=== PATIENT | male | born 1990 | race Two or more races ===

== ENCOUNTER 2018-06-06 09:43 | Emergency (ER) | payer SELFPAY ==
[~2018-06-06] VITALS: Ht 182.9 cm; Wt 95.3 kg
[2018-06-06 09:59] VITALS: BP 127/80
--- NOTE | 2018-06-06 10:14 | PHYS DOC ---
Adult General Chief Complaint Chief Complaint: WRIST PAIN HPI HPI Patient is a 27 year old male who presents with cysts to dorsal wrist that is mirian egged ache size has been coming and going for the last couple of months. Patient denies any pain and has full function of his wrist and hand. Review of Systems Review of Systems Constitutional: Denies fever or chills [] Eyes: Denies change in visual acuity, redness, or eye pain [] HENT: Denies nasal congestion or sore throat [] Respiratory: Denies cough or shortness of breath [] Cardiovascular: No additional information not addressed in HPI [] GI: Denies abdominal pain, nausea, vomiting, bloody stools or diarrhea [] : Denies dysuria or hematuria [] Musculoskeletal: Left Dorsal wrist cyst. Denies back pain or joint pain [] Integument: Denies rash or skin lesions [] Neurologic: Denies headache, focal weakness or sensory changes [] All other systems were reviewed and found to be within normal limits, except as documented in this note. Allergies Allergies Allergies Coded Allergies Type Severity Reaction Last Updated Verified No Known Drug Allergies 06/06/18 No Physical Exam Physical Exam Constitutional: Well developed, well nourished, no acute distress, non-toxic appearance. [] HENT: Normocephalic, atraumatic, bilateral external ears normal, oropharynx moist, no oral exudates, nose normal. [] Eyes: PERRLA, EOMI, conjunctiva normal, no discharge. [] Neck: Normal range of motion, no tenderness, supple, no stridor. [] Cardiovascular:Heart rate regular rhythm, no murmur [] Lungs & Thorax: Bilateral breath sounds clear to auscultation [] Abdomen: Bowel sounds normal, soft, no tenderness, no masses, no pulsatile masses. [] Skin: Warm, dry, no erythema, no rash. [] Back: No tenderness, no CVA tenderness. [] Extremities: No tenderness, no cyanosis, no clubbing, ROM intact, no edema. Left Dorsal wrist cyst.[] Neurologic: Alert and oriented X 3, normal motor function, normal sensory function, no focal deficits noted. [] Psychologic: Affect normal, judgement normal, mood normal. [] EKG EKG [] Radiology/Procedures Radiology/Procedures [] Course & Med Decision Making Course & Med Decision Making Patient is a 27 year old male who presents with cysts to dorsal wrist that is mirian egged size has been coming and going for the last couple of months. Patient denies any pain and has full function of his wrist and hand. Alert and oriented. Skin pink warm and dry. Patient has full of the wrist joint and fingers. Patient denies any pain. Radial pulse strong and present. Cap refill less than 3 seconds. The area is mirian egged sized, nontender, soft and skin colored. This is most likely a ganglion cyst. Patient will be referred to primary care for follow-up care. Patient is stable and in no distress. Dragon Disclaimer Dragon Disclaimer This electronic medical record was generated, in whole or in part, using a voice recognition dictation system. Departure Departure Impression: Primary Impression: Ganglion cyst of dorsum of left wrist Disposition: 01 HOME, SELF-CARE Condition: STABLE Patient Instructions: Ganglion Cyst Additional Instructions: Follow up with primary care provider for continuation of care. ILDEFONSO DING APRN Jun 06, 2018 10:14
== END 2018-06-06 10:48 | disposition home or self-care (01) ==
LOC: ER 09:43
DX: M67.432 Ganglion, left wrist (principal)
CPT/HCPCS: 99281